=== PATIENT | female | born 1970 | race Caucasian/White ===

== ENCOUNTER 2016-05-31 23:32 | Emergency (ER) | payer SELFPAY ==
[2016-05-31 23:43] VITALS: TEMP 98; BMI 34.9
--- NOTE | 2016-06-01 01:18 | DIRPT ---
CLINICAL DATA: Injury to right arm. Stuck arm in dryer while it was still on. Initial encounter. EXAM: RIGHT ELBOW - COMPLETE 3+ VIEW COMPARISON: None. FINDINGS: There is no evidence of fracture or dislocation. Slight cortical irregularity at the distal tip of the coronoid process of the olecranon likely reflects remote injury. The visualized joint spaces are preserved. No significant joint effusion is identified. The soft tissues are unremarkable in appearance. IMPRESSION: No evidence of acute fracture or dislocation. Slight cortical irregularity at the distal tip of the coronoid process of the olecranon likely reflects remote injury. Electronically Signed By: Miguelito Holden M.D. On: 06/01/2016 01:15
--- NOTE | 2016-06-01 01:19 | DIRPT ---
CLINICAL DATA: Injury to right upper arm. Stuck right arm in dryer while it was still on. Initial encounter. EXAM: RIGHT HUMERUS - 2+ VIEW COMPARISON: None. FINDINGS: There is no evidence of fracture or dislocation. The right humerus appears intact. The right humeral head remains seated at the glenoid fossa. The right acromioclavicular joint is grossly unremarkable. No definite soft tissue abnormalities are characterized on radiograph. IMPRESSION: No evidence of fracture or dislocation. Electronically Signed By: Miguelito Holden M.D. On: 06/01/2016 01:17
--- NOTE | 2016-06-01 01:25 | EDPRACDOC ---
- General Information Chief Complaint: Upper Extremity Injury Stated Complaint: RT ARM INJURY Time Seen by Provider: 06/01/16 01:24 Information Source: Patient Home Medications: Home Medications Fluoxetine [Prozac] 60 mg PO DAILY 09/26/14 Ferrous Sulfate [Feosol] 325 mg PO DAILY 03/13/15 Multivitamin [One-A-Day Essential] 1 tab PO DAILY 03/13/15 Buspirone HCl [Buspar] 10 mg PO QID 10/31/15 Estradiol 2 mg PO QAM 10/31/15 Aspirin/Acetaminophen/Caffeine [Excedrin Ex-Strength Geltab 250/250/65mg] 1 - 2 tab PO Q4-6H PRN 03/07/16 Cetirizine HCl [Zyrtec] 10 mg PO DAILY 03/07/16 Diazepam [Valium] 2 mg PO BID PRN #20 tablet 03/07/16 Meclizine HCl [Antivert] 25 mg PO .DAILY SEE COMMENT 03/07/16 Ibuprofen Tablet [Motrin] 800 mg PO TID PRN #30 tab 06/01/16 Tramadol HCl 50 mg PO HS PRN #10 tablet 06/01/16 Allergies/Adverse Reactions: Allergies Allergy/AdvReac Type Severity Reaction Status Date / Time No Known Allergies Allergy Verified 10/31/15 16:59 - History of Present Illness Onset: 1614 HPI: C/o getting arm caught in moving dryer with right wrist, right elbow and rt shoulder pain. Hx of displaced rt clavicle from many years ago, which now feels tender. Dominant Side: Reports: Right Mechanism: Reports: Other (arm caught in dryer) Circumstances: Reports: Other (see above) Relevant History: Reports: None Pain Severity: Reports: Moderate Ability to Move Elbow: Limited (by pain) Associated Signs and Symptoms: Reports: Shoulder Pain, Arm Pain, Forearm Pain, Wrist Pain ED Past Medical History - History Reviewed Yes Nurses notes reviewed and agree except as marked - Patient Medical History Neurological History: Reports: Seizures Psychological History: Denies: Depression - Social Medical History Smoking Status: Never smoker EDM Review of Systems - Review of Systems ROS Negative Except as Marked: Yes All systems reviewed and were negative except as marked Musculoskeletal: Elbow (rt), Shoulder, Wrist - Physical Exam Constitutional: Alert Oriented to: Time, Person, Place Last recorded Vital Signs: Last Vital Signs Temp 98.0 F 05/31/16 23:37 Pulse 83 05/31/16 23:37 Resp 20 05/31/16 23:37 BP 149/94 05/31/16 23:37 Pulse Ox 100 05/31/16 23:37 Oxygen Pulse Oxygen Saturation 100 O2 Device Oxygen Flow Rate Fraction of Inspired Oxygen ( FIO2) - HEENT Head: Normal Eye Exam: negative: Conjunctival Injection, Scleral Icterus Oropharynx: negative: Drooling TMJ: Normal Nose: No Symptoms Reported Neck: Normal - Respiratory/Cardiovascular Respiratory: Normal - CTA Cardiovascular: Normal - GI Auscultation: Normal Palpation: Normal Tenderness: Non tender - Musculoskeletal Back: Normal Extremities: Normal - Integumentary Skin: Normal - Neurologic Mood Description: Normal Thought: Coherent ED Elbow Problem Exam - Musculoskeletal Elbow Symptoms: Moderate Tenderness Shoulder Symptoms: Moderate Tenderness Arm Symptoms: Moderate Tenderness Forearm Symptoms: Moderate Tenderness Wrist Symptoms: Moderate Tenderness Distal Function/Circulation: Normal - Integumentary Skin: Normal - Diagnostic Imaging Elbow Image interpreted by: Radiologist EXAM: RIGHT ELBOW - COMPLETE 3+ VIEW COMPARISON: None. FINDINGS: There is no evidence of fracture or dislocation. Slight cortical irregularity at the distal tip of the coronoid process of the olecranon likely reflects remote injury. The visualized joint spaces are preserved. No significant joint effusion is identified. The soft tissues are unremarkable in appearance. IMPRESSION: No evidence of acute fracture or dislocation. Slight cortical irregularity at the distal tip of the coronoid process of the olecranon likely reflects remote injury. Electronically Signed By: Miguelito Holden M.D. On: 06/01/2016 01:15 Shoulder Image interpreted by: Radiologist EXAM: RIGHT HUMERUS - 2+ VIEW COMPARISON: None. FINDINGS: There is no evidence of fracture or dislocation. The right humerus appears intact. The right humeral head remains seated at the glenoid fossa. The right acromioclavicular joint is grossly unremarkable. No definite soft tissue abnormalities are characterized on radiograph. IMPRESSION: No evidence of fracture or dislocation. Electronically Signed By: Miguelito Holden M.D. On: 06/01/2016 01:17 Wrist Image interpreted by: Radiologist EXAM: RIGHT WRIST - COMPLETE 3+ VIEW COMPARISON: None. FINDINGS: There is no evidence of fracture or dislocation. The carpal rows are intact, and demonstrate normal alignment. The joint spaces are preserved. No significant soft tissue abnormalities are seen. IMPRESSION: No evidence of fracture or dislocation. Electronically Signed By: Miguelito Holden M.D. On: 06/01/2016 02:51 Other Image interpreted by: Radiologist EXAM: RIGHT CLAVICLE - 2+ VIEWS COMPARISON: None. FINDINGS: There is a chronic displaced fracture involving the middle third of the right clavicle, with associated remodeling. There is nearly 2 shaft widths inferior displacement of the distal clavicle. No acute fractures are seen. The right humeral head remains seated at the glenoid fossa. The right acromioclavicular joint is grossly unremarkable. No definite soft tissue abnormalities are characterized on radiograph. IMPRESSION: Chronic displaced fracture involving the middle third of the right clavicle, with associated remodeling. Nearly 2 shaft widths inferior displacement of the distal clavicle. No acute fracture seen. Electronically Signed By: Miguelito Holden M.D. On: 06/01/2016 02:50 Decision Time to Discharge: 03:24 - Departure Disposition: Home Condition: Stable Final Diagnosis: Strain of right elbow and forearm Qualifiers: Encounter type: initial encounter Qualified Code(s): S56.911A - Strain of unspecified muscles, fascia and tendons at forearm level, right arm, initial encounter Instructions: RICE: Routine Care for Injuries Education/Counseling Given Regarding: Diagnosis, Treatment, Prognosis, Follow Up Referrals: Perez Sloan MD [Primary Care Provider] - One Week Prescriptions: Ibuprofen Tablet [Motrin] 800 mg PO TID PRN #30 tab PRN Reason: Pain Tramadol HCl 50 mg PO HS PRN #10 tablet PRN Reason: Pain Additional Instructions: Follow up with primary care. Take motrin for pain and inflammation. Take tramadol at night to help with pain. Return to ED for any new or worsening symptoms.
[2016-06-01] MEDS ORDERED: OXYCODONE HCL 5 MG TABLET PO ONE (01:38)
--- NOTE | 2016-06-01 02:53 | DIRPT ---
CLINICAL DATA: Injury to the right upper arm, with right clavicular pain. Initial encounter. EXAM: RIGHT CLAVICLE - 2+ VIEWS COMPARISON: None. FINDINGS: There is a chronic displaced fracture involving the middle third of the right clavicle, with associated remodeling. There is nearly 2 shaft widths inferior displacement of the distal clavicle. No acute fractures are seen. The right humeral head remains seated at the glenoid fossa. The right acromioclavicular joint is grossly unremarkable. No definite soft tissue abnormalities are characterized on radiograph. IMPRESSION: Chronic displaced fracture involving the middle third of the right clavicle, with associated remodeling. Nearly 2 shaft widths inferior displacement of the distal clavicle. No acute fracture seen. Electronically Signed By: Miguelito Holden M.D. On: 06/01/2016 02:50
--- NOTE | 2016-06-01 02:54 | DIRPT ---
CLINICAL DATA: Acute onset of right wrist pain, after right arm injury. Initial encounter. EXAM: RIGHT WRIST - COMPLETE 3+ VIEW COMPARISON: None. FINDINGS: There is no evidence of fracture or dislocation. The carpal rows are intact, and demonstrate normal alignment. The joint spaces are preserved. No significant soft tissue abnormalities are seen. IMPRESSION: No evidence of fracture or dislocation. Electronically Signed By: Miguelito Holden M.D. On: 06/01/2016 02:51
[2016-06-01 03:50] VITALS: BP 120/86; PULSE 98
== END 2016-06-01 03:42 | disposition home or self-care (01) ==
LOC: ED 23:32
DX: S56.911A Strain of unspecified muscles, fascia and tendons at forearm level, right arm, initial encounter (principal); X58.XXXA Exposure to other specified factors, initial encounter; Y93.89 Activity, other specified
CPT/HCPCS: 73000; 73060; 73080; 73110; 99283; J3490

== ENCOUNTER 2016-07-07 15:59 | Emergency (ER) | payer SELFPAY ==
[2016-07-07 15:59] VITALS: BMI 34.9
--- NOTE | 2016-07-07 16:29 | EDPRACDOC ---
- General Information Stated Complaint: NECK PAIN Time Seen by Provider: 07/07/16 16:22 Home Medications: Home Medications Cyclobenzaprine HCl [Flexeril] 10 mg PO TID #21 tab 07/07/16 Prednisone [Deltasone, Orasone] 2 tabs PO DAILY #20 tab 07/07/16 Allergies/Adverse Reactions: Allergies Allergy/AdvReac Type Severity Reaction Status Date / Time No Known Allergies Allergy Verified 07/07/16 16:28 - History of Present Illness Onset: 1 MONTH HPI: PT PRESENTS TODAY WITH RIGHT LATERAL NECK PAIN X 1 MONTH. 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 NO OTHER SYMPTOMS REPORTED. Pain Severity: Moderate Mechanism: Twisting Circumstances: Reports: Work-related Associated signs and symptoms: Reports: None ED Past Medical History - History Reviewed Yes Nurses notes reviewed and agree except as marked - Patient Medical History Neurological History: Reports: Seizures Psychological History: Denies: Depression - Social Medical History Smoking Status: Never smoker EDM Review of Systems - Review of Systems ROS Negative Except as Marked: Yes All systems reviewed and were negative except as marked Constitutional: No Symptoms Reported Respiratory: No Symptoms Reported Cardiovascular: No Symptoms Reported Gastrointestinal: No Symptoms Reported Neurological: No Symptoms Reported Musculoskeletal: Neck Integumentary: No Symptoms Reported - Physical Exam Constitutional: Alert (Awake), No apparent distress Oriented to: Time, Person, Place Last recorded Vital Signs: Oxygen Pulse Oxygen Saturation O2 Device Oxygen Flow Rate Fraction of Inspired Oxygen ( FIO2) - HEENT Head: Normal Eye Exam: Normal Neck: Limited ROM, Midline, Paraspinal Tenderness - Respiratory/Cardiovascular Respiratory: Normal - CTA Cardiovascular: Normal - GI Palpation: Normal Tenderness: Non tender - Musculoskeletal Back: Normal Extremities: Normal - Integumentary Skin: Normal Lymphatics: Normal - Neurologic Cerebellar: Normal Mood Description: Normal Thought: Coherent Perception: Normal Decision Time to Discharge: 16:28 - Departure Disposition: Home Condition: Good Final Diagnosis: Torticollis Instructions: Spasmodic Torticollis (ED) Education/Counseling Given To: Patient Education/Counseling Given Regarding: Diagnosis, Treatment, Follow Up Referrals: Perez Sloan MD [Primary Care Provider] - One Week Prescriptions: New Cyclobenzaprine HCl [Flexeril] 10 mg PO TID #21 tab Prednisone [Deltasone, Orasone] 2 tabs PO DAILY #20 tab Additional Instructions: HEATING PADS AND MASSAGE NECK MUSCLES TO HELP THEM TO LOOSEN. IF SYMPTOMS PERSIST, FOLLOW UP WITH PCP.
[2016-07-07 16:30] VITALS: BP 129/76; PULSE 100; TEMP 98.5
== END 2016-07-07 16:36 | disposition home or self-care (01) ==
LOC: EDMC 15:59
DX: M43.6 Torticollis (principal)
CPT/HCPCS: 99282